=== PATIENT | female | born 1990 | race African-American/Black ===

== ENCOUNTER 2018-08-05 17:31 | Emergency (ER) | payer OTHER ==
[~2018-08-05] VITALS: Ht 170.2 cm; Wt 95.3 kg
[~2018-08-05 17:31] MED LIST: IBUPROFEN600 MG ORAL; ROBAXIN500 MG PO
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
[2018-08-05 17:51] VITALS: BP 138/88
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
[2018-08-05] MEDS ORDERED: LIDODERM700 M1 TOPIC (18:45)
[2018-08-05] MEDS ORDERED: ROBAXIN-750750 MG PO (18:45)
[2018-08-05] MEDS ORDERED: IBUPROFEN600 MG ORAL (18:45)
[2018-08-05 18:54] VITALS: BP 133/71
--- NOTE | 2018-08-05 18:56 | NUR ---
ER DISCHARGE NOTE: Patient is cleared to be discharged per ERPA, pt is aox4, on room air, with stable vital signs. pt was given dc and prescription instructions, pt was able to verbalize understanding, pt id band removed. pt is able to ambulate with steady gait. pt took all belongings.
== END 2018-08-05 18:57 | disposition home or self-care (01) ==
LOC: EMR 18:44
DX: S13.9XXA Sprain of joints and ligaments of unspecified parts of neck, initial encounter (principal); R51 Headache; V43.52XA Car driver injured in collision with other type car in traffic accident, initial encounter; Y93.9 Activity, unspecified; Y92.410 Unspecified street and highway as the place of occurrence of the external cause; M54.6 Pain in thoracic spine
CPT/HCPCS: 99282

== ENCOUNTER 2019-06-07 04:44 | Emergency (ER) | payer OTHER ==
[~2019-06-07] VITALS: Ht 170.2 cm; Wt 108.9 kg
[~2019-06-07 04:44] MED LIST changes: +LIDODERM700 M1 TOPIC; +ROBAXIN-750750 MG PO
[2019-06-07 05:00] VITALS: BP 139/85
--- NOTE | 2019-06-07 05:00 | NUR ---
ED Nurse Note: Patient walked in from home d/t chest pain and SOB for 3 days. Patient stated consumption of alcohol worsened chest pain 11/15. Patient aao x 4 and ambulatory. Patient placed on distance learning administrator and gown. Patient stable upon assessment.
--- NOTE | 2019-06-07 05:09 | NUR ---
ED Nurse Note: Blood collected and sent to lab.
--- NOTE | 2019-06-07 05:12 | NUR ---
ED Nurse Note: ERMD at bedside.
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
--- NOTE | 2019-06-07 05:21 | NUR ---
ED Nurse Note: Xray at bedside.
[2019-06-07 05:46] LABS: HEMATOCRIT 32.1 % (37.0-47.0); HEMOGLOBIN 10.1 G/DL (12.0-16.0); MEAN CORPUSCULAR VOLUME 70 FL (80-99); PLATELET COUNT 236 K/UL (150-450); RED BLOOD COUNT 4.56 M/UL (4.20-5.40); RED CELL DISTRIBUTION WIDTH 15.3 % (11.6-14.8); WHITE BLOOD COUNT 20.3 K/UL (4.8-10.8)
[2019-06-07 05:57] LABS: ANION GAP 18 mmol/L (5-15); BLOOD UREA NITROGEN 13 mg/dL (7-18); CALCIUM 9.4 MG/DL (8.5-10.1); CARBON DIOXIDE 21 MMOL/L (21-32); CHLORIDE 101 MMOL/L (98-107); CREATININE 1.2 MG/DL (0.55-1.30); POTASSIUM 3.9 MMOL/L (3.5-5.1); SODIUM 140 MMOL/L (136-145)
[2019-06-07 06:01] LABS: ALANINE AMINOTRANSFERASE 21 U/L (12-78); ALBUMIN 4.1 G/DL (3.4-5.0); ALBUMIN/GLOBULIN RATIO 0.8 (1.0-2.7); ALKALINE PHOSPHATASE 114 U/L (46-116); ASPARTATE AMINO TRANSFERASE 23 U/L (15-37); BILIRUBIN,TOTAL 0.6 MG/DL (0.2-1.0)
--- NOTE | 2019-06-07 06:18 | Diagnostic Imaging Report ---
EXAM: XR Chest, 1 View CLINICAL HISTORY: CP TECHNIQUE: Frontal view of the chest. COMPARISON: No relevant prior studies available. FINDINGS: Lungs: Unremarkable. No consolidation. Pleural space: Unremarkable. No pneumothorax. Heart: Unremarkable. No cardiomegaly. Mediastinum: Unremarkable. Bones/joints: Unremarkable. IMPRESSION: Normal chest x-ray.
[2019-06-07 07:05] VITALS: BP 128/86
[2019-06-07] MEDS ORDERED: Omnipaque 350 100ml vial INJ PRN (07:15)
--- NOTE | 2019-06-07 07:20 | NUR ---
HAND-OFF: Report given to ROSALBA Jung.
[2019-06-07 07:37] LABS: APPEARANCE,URINE CLEAR; BILIRUBIN, URINE NEGATIVE (NEGATIVE); COLOR,URINE PALE YELLOW; GLUCOSE, URINE (UA) NEGATIVE (NEGATIVE); KETONES,URINE 3+ (NEGATIVE); LEUKOCYTE ESTERASE ,URINE NEGATIVE (NEGATIVE); NITRITE,URINE NEGATIVE (NEGATIVE); PH,URINE 5 (4.5-8.0); PROTEIN,URINE NEGATIVE (NEGATIVE); UROBILINOGEN,URINE NORMAL MG/DL (0.0-1.0)
--- NOTE | 2019-06-07 08:00 | NUR ---
ED Nurse Note: CALLED LAB AND SPOKE TO BARBIE TO FF UP WITH LAB ADD ON ORDERS.
--- NOTE | 2019-06-07 08:05 | NUR ---
ED Nurse Note: PT DECIDES TO BE DISCHARGED FROM ED FOR A PESONAL REASON AND STATES SHE WILL COME BACK AT ANOTHER TIME. DR MEDLEY WAS NOTIFIED. PT WILL SIGN AMA FORM.
[2019-06-07 08:09] VITALS: BP 122/70
--- NOTE | 2019-06-07 08:09 | NUR ---
ER DISCHARGE NOTE: SHELIA spoke to the pt. Patient signed AMA and verbalized understanding that she can come back at anytime, pt is aox4, on room air, with stable vital signs. pt id band and iv site removed without complications. pt is able to ambulate with steady gait. pt took all belongings.
--- NOTE | 2019-06-07 08:14 | NUR ---
Note toya in EDM - 06/07/19 at 0816 by CM ER DISCHARGE NOTE: SHELIA spoke to the pt. Patient signed AMA and verbalized understanding that she can come back at anytime, pt is aox4, on room air, with stable vital signs. pt id band and iv site removed without complications. pt is able to ambulate with steady gait. pt took all belongings.
[2019-06-07] MEDS ORDERED: ZOLOFT50 MG ORAL (10:22)
[2019-06-07] MEDS ORDERED: REMERON45 M1 ORAL (10:22)
[2019-06-07] MEDS ORDERED: PRILOSEC OTC20 MG ORAL (13:37)
== END 2019-06-07 08:09 | disposition left against medical advice (07) ==
LOC: EMR 05:05
DX: D72.829 Elevated white blood cell count, unspecified (principal); R07.9 Chest pain, unspecified; F32.9 Major depressive disorder, single episode, unspecified; F41.9 Anxiety disorder, unspecified; F17.210 Nicotine dependence, cigarettes, uncomplicated; R00.0 Tachycardia, unspecified
CPT/HCPCS: 36415; 71045; 80053; 81003; 83690; 84484; 85007; 85025; 85379; 93005; Z7502; 99283

== ENCOUNTER 2019-06-07 10:03 | Emergency (ER) | payer OTHER ==
[~2019-06-07] VITALS: Ht 170.2 cm; Wt 104.3 kg
[2019-06-07] MEDS ORDERED: ZOLOFT50 MG ORAL (10:22)
[2019-06-07] MEDS ORDERED: REMERON45 M1 ORAL (10:22)
--- NOTE | 2019-06-07 10:40 | NUR ---
ED Nurse Note: Patient came to ED after leaving AMA earlier today d/t being called back re high WBC on her labwork. Patient AxO x 4, no s/s of acute distress.
[2019-06-07 10:50] VITALS: BP 142/98
[2019-06-07] MEDS ORDERED: Omnipaque 350 100ml vial INJ PRN (11:00)
[2019-06-07 12:21] VITALS: BP 139/90
[2019-06-07] MEDS ORDERED: Acetaminophen 500mg (ES) tab ORAL ONE (12:30)
--- NOTE | 2019-06-07 12:46 | Emergency Room Report ---
History of Present Illness General Chief Complaint: Abnormal Labs Source: Patient Present Illness HPI Patient is a 29-year-old female who recently left hospital AGAINST MEDICAL ADVICE for chest pain. Patient was pending CT of the chest. She had been having tachycardia as well as elevated white blood count on previous blood draw. She had recently been having increased nonproductive cough. Denies any fever. Allergies: Coded Allergies: No Known Allergies (Unverified , 12/10/17) Patient History Past Medical History: see triage record Reviewed Nursing Documentation: PMH: Agreed; PSxH: Agreed Nursing Documentation-PMH Past Medical History: No Stated History Review of Systems All Other Systems: negative except mentioned in HPI Physical Exam Vital Signs Date Time Temp Pulse Resp B/P (MAP) Pulse Ox O2 Delivery O2 Flow Rate FiO2 06/07/19 10:20 98.4 114 17 142/98 (113) 96 Room Air Sp02 EP Interpretation: reviewed, normal General Appearance: normal inspection, well appearing, no apparent distress, alert, GCS 15 Head: atraumatic ENT: normal ENT inspection, hearing grossly normal, normal voice Neck: normal inspection, full range of motion, supple, no bony tend Respiratory: normal inspection, lungs clear, normal breath sounds, no respiratory distress, no retraction, no wheezing Cardiovascular #1: regular rate, rhythm, no edema Gastrointestinal: normal inspection, normal bowel sounds, non tender, soft, no guarding, no hernia Genitourinary: no CVA tenderness Musculoskeletal: normal inspection, back normal, normal range of motion Neurologic: alert, motor strength/tone normal, 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 Differential diagnosis include was not limited to pneumonia, endocarditis, viral respiratory infection among others. Patient previously had laboratory testing performed which showed elevated white blood count. There is not appear to be any evidence of definitive source. Patient was given IV fluids as well as Tylenol with improvement in her pain. CT imaging showed no evidence of acute pulmonary embolism or cardiomegaly. Patient was advised to follow-up with recheck of her blood counts in the next 2 to 3 days. She is advised to return for worsening pain or other concerns. She given prescription for acid blockers. Last Vital Signs Date Time Temp Pulse Resp B/P (MAP) Pulse Ox O2 Delivery O2 Flow Rate FiO2 06/07/19 12:21 99.1 86 18 139/90 99 Room Air Status: improved Disposition: HOME, SELF-CARE Condition: Stable Scripts Omeprazole Magnesium (PRILOSEC OTC) 20 Mg Tablet. 20 MG ORAL DAILY, #30 TAB Prov: Orlando Berry MD 06/07/19 Referrals: NON PHYSICIAN (PCP) Orlando Berry MD Jun 07, 2019 12:46
--- NOTE | 2019-06-07 13:00 | Diagnostic Imaging Report ---
EXAM: CT Angiography Chest With Intravenous Contrast CLINICAL HISTORY: CP TECHNIQUE: Axial computed tomographic angiography images of the chest with intravenous contrast. CTDI is 11.1 mGy and DLP is 274.1 mGy-cm. One or more of the following dose reduction techniques were used: automated exposure control, adjustment of the mA and/or kV according to patient size, use of iterative reconstruction technique. MIP reconstructed images were created and reviewed. COMPARISON: Chest radiograph On 06/07/2019 FINDINGS: Pulmonary arteries: No central or large pulmonary embolus identified. Evaluation of the pulmonary arterial branches is limited by prominent motion artifact. Aorta: No aortic aneurysm or dissection. Lungs: Unremarkable. No mass. No consolidation. Pleural space: Unremarkable. No significant effusion. No pneumothorax. Heart: Unremarkable. No cardiomegaly. No significant pericardial effusion. No evidence of RV dysfunction. Bones/joints: No acute fracture. No dislocation. Soft tissues: Unremarkable. Lymph nodes: Unremarkable. No enlarged lymph nodes. Liver: Hepatic steatosis. IMPRESSION: 1. No central or large pulmonary embolus identified. Evaluation of the pulmonary arterial branches is limited by prominent motion artifact. 2. No aortic aneurysm or dissection. 3. No acute pulmonary parenchymal abnormality identified.
--- NOTE | 2019-06-07 13:00 | NUR ---
ED Nurse Note: Patient resting in bed, no s/s of acute distress.
[2019-06-07] MEDS ORDERED: PRILOSEC OTC20 MG ORAL (13:37)
[2019-06-07 14:15] VITALS: BP 139/90
[2019-06-07 15:45] VITALS: BP 139/90
--- NOTE | 2019-06-07 15:45 | NUR ---
ER DISCHARGE NOTE: Patient is cleared to be discharged per ERMD, pt is aox4, on room air, with stable vital signs. pt was given dc and prescription instructions, pt was able to verbalize understanding, pt id band and iv site removed without complications. pt is able to ambulate with steady gait. pt took all belongings.
== END 2019-06-07 15:45 | disposition home or self-care (01) ==
LOC: EMR 10:38
DX: D72.829 Elevated white blood cell count, unspecified (principal); R07.9 Chest pain, unspecified; R05 Cough
CPT/HCPCS: 71275; Q9967; Z7502; 99284

== ENCOUNTER 2019-09-08 03:45 | Emergency (ER) | payer OTHER ==
[~2019-09-08] VITALS: Ht 170.2 cm; Wt 104.3 kg
[~2019-09-08 03:45] MED LIST changes: +PRILOSEC OTC20 MG ORAL; +REMERON45 M1 ORAL; +ZOLOFT50 MG ORAL
[2019-09-08 03:55] VITALS: BP 132/68
[2019-09-08 04:25] VITALS: BP 130/60
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
== END 2019-09-08 04:25 | disposition home or self-care (01) ==
LOC: EMR 04:22
DX: S70.12XA Contusion of left thigh, initial encounter (principal); V43.52XA Car driver injured in collision with other type car in traffic accident, initial encounter; Y92.9 Unspecified place or not applicable
CPT/HCPCS: 99282

== ENCOUNTER → 2020-02-17 | Emergency (ER) | payer OTHER ==
--- NOTE | 2020-02-17 16:45 | NUR ---
ED Nurse Note: patient was called not in the waiting room
--- NOTE | 2020-02-17 16:55 | NUR ---
ED Nurse Note: patient was called second time not in the waiting room
--- NOTE | 2020-02-17 19:49 | Emergency Room Report ---
History of Present Illness General Chief Complaint: To Be Triaged Present Illness HPI This patient left prior to evaluation by medical provider. Allergies: Coded Allergies: No Known Allergies (Unverified , 12/10/17) COVID-19 Screening Contact w/high risk pt: No Recent Travel to affected area: No Experienced COVID-19 symptoms?: No Medical Decision Making PA Attestation Dr. Zacarias Is my supervising Physician whom patient management has been discussed with. ER Course This patient left prior to evaluation by medical provider. Referrals: [facility],REFERR[facility] (PCP) Tana Camp Feb 17, 2020 19:49
== END | disposition left against medical advice (07) ==
LOC: EMR 17:20
DX: Z53.21 Procedure and treatment not carried out due to patient leaving prior to being seen by health care provider (principal)